=== PATIENT | male | born 1950 | race Caucasian/White ===

== ENCOUNTER 2022-10-12 01:10 | Inpatient (IN) | payer OTHER ==
[~2022-10-12] VITALS: Ht 182.9 cm; Wt 81.6 kg
--- NOTE | 2022-10-12 01:10 | NUR ---
PT GALLITO BLS. TAKEN TO BED 3
[2022-10-12 01:18] VITALS: BP 109/58; PULSE 71; RESP 30; TEMP 97.8; O2SAT 92
--- NOTE | 2022-10-12 01:20 | NUR ---
71 YO M BIBA FROM [facility] WITH C/C OF 9/10 RT HIP PAIN S/P MECH TRIP AND FALL. PT STATES HE LOST BALANCE AND FELL. NO LOC, NO BLOOD THINNERS. NO DEFORMITY ON RT HIP VISIBLE. SKIN TEAR TO LEFT ELBOW AND RT KNEE. HX:HTN, SEIZURE, STENT NKA
--- NOTE | 2022-10-12 01:27 | NUR ---
RAD AT BEDSIDE
[2022-10-12] MEDS ORDERED: KETOROLAC 15 MG/ML VIAL IM ONE (02:30)
--- NOTE | 2022-10-12 03:00 | NUR ---
ASSISTED WITH POSITIONING FOR COMFORT, PILLOWS PLACED
[2022-10-12] MEDS ORDERED: MORPHINE SULFATE 4 MG/ML SYR IVP ONE (03:50)
[2022-10-12 04:17] LABS: ANION GAP 7.4 (8-16); CARBON DIOXIDE 31.3 mmol/L (21-32)
[2022-10-12 04:18] LABS: BASOPHILS # (AUTO) 0.1 K/uL (0.00-0.22); BASOPHILS % (AUTO) 1.2 % (0.0-2.0); EOSINOPHILS % (AUTO) 0.2 % (0.0-4.0); HEMATOCRIT 40.9 % (36-52); LYMPHOCYTES # (AUTO) 1.2 K/uL (2.0-11.5); LYMPHOCYTES % (AUTO) 12.2 % (20.5-51.1); MEAN CORPUSCULAR HEMOGLOBIN 31 pg (27-31); MEAN CORPUSCULAR HGB CONC 34 g/dL (33-37); MEAN CORPUSCULAR VOLUME 89.5 fL (80-94); MONOCYTES # (AUTO) 0.5 K/uL (0.8-1.0); MONOCYTES % (AUTO) 5.1 % (1.7-9.3); NEUTROPHILS # (AUTO) 8.1 K/uL (1.8-7.7); NEUTROPHILS % (AUTO) 81.3 % (42.2-75.2); PLATELET COUNT (AUTO) 207 K/uL (140-450); RED BLOOD CELL COUNT(AUTO) 4.57 MIL/uL (4.20-6.10); RED CELL DISTRIBUTION WIDTH 14.9 % (11.6-13.7); WHITE BLOOD COUNT (AUTO) 9.9 K/uL (4.8-10.8)
[2022-10-12 04:19] LABS: POTASSIUM 2.7 mmol/L (3.5-5.1)
[2022-10-12] MEDS ORDERED: KCL 20 MEQ IN 100 mL PREMIX 200 ML IV ONE (04:25)
[2022-10-12] MEDS ORDERED: HYDROmorphone PFS 2 MG/ML SYR IVP ONE (05:55)
--- NOTE | 2022-10-12 06:00 | NUR ---
PT PULLED IV OUT. 22G REESTABLISHED LEFT A/C
[2022-10-12] MEDS ORDERED: MAGNESIUM OXIDE 400 MG TAB PO PRN (06:05)
[2022-10-12] MEDS ORDERED: KCL 20 MEQ IN 100 mL PREMIX 200 ML IV PRN (06:05)
[2022-10-12] MEDS ORDERED: MAG SULF 2000 MG/WATER PREMIX 50 ML IV PRN (06:05)
--- NOTE | 2022-10-12 07:56 | NUR ---
Pt report given to CLARA CANNON. PT TAKEN BY JAY TO THE FLOOR ESCORT BY RN AND EMT IN STABLE CONDITION. CARE TO R HIP DURING TRANSFER. Transfer of care at this time.
--- NOTE | 2022-10-12 08:55 | NUR ---
PATIENT HAS BEEN SCREENED AND CATEGORIZED LOW NUTRITION RISK. PATIENT WILL BE SEEN WITHIN 7 DAYS OF ADMISSION. 10/19/22 REVIEWED BY GREYSON LE[address]
[2022-10-12] MEDS: POTASSIUM CHLORIDE 10 MEQ TABER PO PRN (09:17)
[2022-10-12] MEDS: DOCUSATE SODIUM 100 MG GELCAP PO SCH (09:18)
[2022-10-12] MEDS: HYDROcodone/APAP 5/325 MG 1 TAB TAB PO PRN ×3 (09:18→18:48)
[2022-10-12] MEDS: NACL 0.9% 1,000 ML IV SCH ×2 (09:22→17:44)
[2022-10-12] MEDS ORDERED: POTASSIUM CHLORIDE 10 MEQ TABER PO SCH (10:16)
--- NOTE | 2022-10-12 11:00 | NUR ---
admitted the patient from the emergency room nicko Stallings in rm [id number] aox4 with episode of confusion ,with admitting diagnosis of right hip fracture . for pain management .consult with orthopedic md Coley ,
--- NOTE | 2022-10-12 11:45 | NUR ---
md Coley made rounds prescribe cardiac diet . will also femur fracture open reduction after clearing with cardiac Md tentatively in 2-3 days . will continue to monitor
[2022-10-12] MEDS: MORPHINE SULFATE 4 MG/ML SYR IVP PRN ×3 (11:55→23:03)
[2022-10-12 12:00] VITALS: BP 121/72; PULSE 58; RESP 18; TEMP 97.1; O2SAT 96
[2022-10-12 14:34] VITALS: PULSE 68; RESP 20; O2SAT 99
--- NOTE | 2022-10-12 14:57 | NUR ---
P.T. NOTES HOLD P.T. ERNESTO, AWAITING AMBER LEO.
[2022-10-12 15:04] VITALS: PULSE 68
[2022-10-12] MEDS: ACETAMINOPHEN 325 MG TAB PO PRN ×2 (15:33→21:39)
[2022-10-12 16:00] VITALS: BP 129/70; PULSE 55; RESP 18; TEMP 97.3; O2SAT 97
--- NOTE | 2022-10-12 16:27 | NUR ---
DC PLANNING 71 Y O MALE PATIENT PRESENTED TO ER WITH COMPLAINTS OF RIGHT HIP PAIN AFTER SUSTAINING A GROUND LEVEL FALL ON 10/12/2022.HX OF HTN, DM AND CHF AND [address] CONFIRMED MILDLY DISPLACED COMMUTED INTRATROCHANTERIC FEMUR FX OF THE RIGHT FEMORAL NECK.ADMITTED TO TELEMETRY AND SEEN BY CHERELLE OREILLY.PAIN MEDS:NORCO MOS4, TYLENOL.FOR SURGERY 10/14 OR 10/15 PENDING CARDIAC CLEARANCE.ERICKA KIM AT [facility] UPDATED OF PATIENT'S STATUS.CLINICALS FAXED WELL.DC PLAN-DC BACK TO [facility] AFTER SURGERY AND WHEN PATIENT CONDITION IMPROVES.CM TO FOLLOW. Addendum: 10/16/22 at 1440 by CHELSIE ACOSTA CM DC PLANNING S/P ORIF 10/15.SITTING UP IN CHAIR.ALERT AND ORIENTED X 4.POST OP PAIN BEARABLE,ON NORCO AND MORPHINE.PT EVAL DONE AND RECOMMENDING SNF FOR PT.SON INFORMED OF THE PLAN AND AGREEABLE WITH SNF. [facility] ACCEPTED PATIENT.PATIENT TO GO TO ROOM 33-A UNDER DR.BALIAL IBARRA. TRANSPORT TO BE ARRANGED WITH [facility] BY JAY ONCE DC ORDER IS IN. Addendum: 10/16/22 at 1613 by DENISE LOCKWOOD TRANSPORTATION ARRANGED WITH [facility]SPORT FOR A 1900 [address] STITCHER TIME. NURSE ADRI AWARE OF THE ABOVE INFO. Addendum: 10/16/22 at 1629 by CHELSIE ACOSTA DC PLANNING TALKED TO THE PATIENT AGAIN AND VERIFIED THE CHOICE FOR SNF.PATIENT ONLY REQUESTING [facility] TO TALK TO HIM.NO AVAILABLE BED AT [facility].PATIENT CHOSE TO GO TO [facility].REPORT TO BE GIVEN AT [phone] .PATIENT WILL GO TO ROOM 33-A UNDER DR.BALIAL IBARRA' CARE. PATIENT IS ASKING FOR PAIN MEDICINE .ADRI ROBLES.
--- NOTE | 2022-10-12 18:57 | NUR ---
will endorse to engineering technician parking shift rn for continuity of care
--- NOTE | 2022-10-12 19:00 | NUR ---
RECEIVED PT FROM MORNING SHIFT NURSE. PT IS AOX4, BEDBOUND, ABLE TO VERBALIZE NEEDS AND ABLE TO FOLLOW COMMANDS. PT IS ON 2L NC AND ON CARDIAC DIET. PT HAS IV ON LEFT AC GAUGE 22 RUNNING WITH NS AT 80ML/HR. PT HAS WOUND ON RIGHT LOWER LEG AND LEFT ELBOW. ALL SAFETY MEASURES IMPLEMENTED, BED IN LOW POSITION, BED WHEELS ON LOCK AND CALL LIGHT WITHIN REACH.
[2022-10-12 20:00] VITALS: BP 133/83; PULSE 56; RESP 18; TEMP 97.7; O2SAT 96
--- NOTE | 2022-10-12 22:00 | NUR ---
IV IS INFILTRATED. INSERTED IV ON LEFT HAND GAUGE 20. IV IS NOW PATENT AND INTACT. ALL SAFETY MEASURES IMPLEMENTED, BED IN LOW POSITION, BED WHEELS ON LOCK AND CALL LIGHT WITHIN REACH.
[2022-10-12] MEDS: ONDANSETRON 4 MG/2 ML VIAL IVP PRN (23:06)
[2022-10-13] VITALS: BP 147/72; PULSE 57; RESP 18; TEMP 97.8; O2SAT 98
[2022-10-13] MEDS ORDERED: oxyCODONE/APAP 5/325 MG 1 TAB TAB PO PRN (01:05)
--- NOTE | 2022-10-13 01:20 | NUR ---
PERCUASET WAS GIVEN TO PT DUE TO HIP AND LEG PAIN WITH PAIN SCALE OF 6/10. ALL SAFETY MEASURES IMPLEMENTED, BED IN LOW POSITION, BED WHEELS ON LOCK AND CALL LIGHT WITHIN REACH.
[2022-10-13 04:00] VITALS: BP 141/63; PULSE 72; RESP 17; TEMP 99; O2SAT 97
--- NOTE | 2022-10-13 04:00 | NUR ---
PT IS ON SLEEP. CHEST RISE AND FALL SYMMETRICALLY FALL. RESPIRATION IS EVEN AND UNLABORED. ALL SAFETY MEASURES IMPLEMENTED, BED IN LOW POSITION, BED WHEELS ON LOCK AND CALL LIGHT WITHIN REACH.
[2022-10-13] MEDS: MORPHINE SULFATE 4 MG/ML SYR IVP PRN ×6 (05:21→21:45)
[2022-10-13] MEDS: ONDANSETRON 4 MG/2 ML VIAL IVP PRN (05:21)
--- NOTE | 2022-10-13 06:52 | NUR ---
RECEIVED PT FROM MORNING SHIFT NURSE. PT IS AOX4, BEDBOUND, ABLE TO VERBALIZE NEEDS AND ABLE TO FOLLOW COMMANDS. PT IS ON 2L NC AND ON CARDIAC DIET. PT HAS IV ON LEFT AC GAUGE 22 RUNNING WITH NS AT 80ML/HR. PT HAS WOUND ON RIGHT LOWER LEG AND LEFT ELBOW. ALL SAFETY MEASURES IMPLEMENTED, BED IN LOW POSITION, BED WHEELS ON LOCK AND CALL LIGHT WITHIN REACH. Addendum: 10/13/22 at 0658 by Ginger Roe RN WRONG TIME
[2022-10-13] MEDS: NACL 0.9% 1,000 ML IV SCH ×2 (07:05→16:04)
--- NOTE | 2022-10-13 07:30 | NUR ---
RECEIVED PT FROM TOBACCO FLAVORER FOR CONTINUITY OF CARE. ALERT AND VERBALLY RESPONSIVE. RESP. EVEN AND UNLABORED. ON CONTINUOUS O2 @ 2L/NC. NOTED PT REMOVING O2. EDUCATED PT. NOT IN ANY DISTRESS NOTED. CALLED LIGHT KEPT WITHIN REACH. WILL CONTINUE TO MONITOR.
--- NOTE | 2022-10-13 07:41 | NUR ---
PT IS STABLE. ENDORSED PT TO MORNING SHIFT NURSE FOR CONTINUITY OF CARE.
[2022-10-13 08:00] VITALS: BP 112/67; PULSE 85; RESP 18; TEMP 98.4; O2SAT 99
[2022-10-13] MEDS: ACETAMINOPHEN 325 MG TAB PO PRN (08:11)
[2022-10-13] MEDS: DOCUSATE SODIUM 100 MG GELCAP PO SCH ×2 (08:12→08:19)
[2022-10-13] MEDS: ECOTRIN 81 MG TABEC PO SCH (08:13)
--- NOTE | 2022-10-13 08:13 | NUR ---
SCHEDULED MEDICATIONS AND PRN TYLENOL FOR HEADACHE WAS GIVEN. PT REFUSED DOCUSATE SODIUM. EXPLAINED RISK AND BENEFITS BUT STILL REFUSED.
[2022-10-13 08:26] LABS: BASOPHILS # (AUTO) 0.1 K/uL (0.00-0.22); BASOPHILS % (AUTO) 0.9 % (0.0-2.0); EOSINOPHILS # (AUTO) 0.2 K/uL (0-0.4); EOSINOPHILS % (AUTO) 2.6 % (0.0-4.0); HEMATOCRIT 33.8 % (36-52); HEMOGLOBIN 11.6 g/dL (12.0-18.0); LYMPHOCYTES # (AUTO) 1.4 K/uL (2.0-11.5); MEAN CORPUSCULAR HEMOGLOBIN 31 pg (27-31); MEAN CORPUSCULAR HGB CONC 34 g/dL (33-37); MEAN CORPUSCULAR VOLUME 90.6 fL (80-94); MONOCYTES # (AUTO) 0.5 K/uL (0.8-1.0); MONOCYTES % (AUTO) 7.7 % (1.7-9.3); NEUTROPHILS # (AUTO) 4.2 K/uL (1.8-7.7); NEUTROPHILS % (AUTO) 66.8 % (42.2-75.2); PLATELET COUNT (AUTO) 148 K/uL (140-450); RED BLOOD CELL COUNT(AUTO) 3.73 MIL/uL (4.20-6.10); RED CELL DISTRIBUTION WIDTH 15.1 % (11.6-13.7); WHITE BLOOD COUNT (AUTO) 6.3 K/uL (4.8-10.8)
[2022-10-13 08:48] LABS: ANION GAP 10.7 (8-16); CARBON DIOXIDE 24.6 mmol/L (21-32); CREATININE 0.7 mg/dL (0.6-1.3); POTASSIUM 3.3 mmol/L (3.5-5.1)
[2022-10-13 09:37] LABS: MAGNESIUM 1.9 mg/dL (1.8-2.4); PHOSPHORUS 2.7 mg/dL (2.5-4.9)
--- NOTE | 2022-10-13 10:57 | NUR ---
P.T. NOTES HOLD P.T. EVAL, POSSIBLE SX PER ORTHO NOTE.
--- NOTE | 2022-10-13 11:20 | NUR ---
SEEN BY DR. FUCHS.
--- NOTE | 2022-10-13 15:52 | NUR ---
PRN MORPHINE IVP WAS GIVEN BY LOWELL CANNON. TOLERATED WELL.
[2022-10-13] MEDS: POTASSIUM CHLORIDE 10 MEQ TABER PO PRN (17:24)
[2022-10-13] MEDS: oxyCODONE/APAP 5/325 MG 1 TAB TAB PO PRN ×2 (17:24→23:21)
--- NOTE | 2022-10-13 17:24 | NUR ---
K DUR GIVEN FOR POTASSIUM 3.3. TOLERATED WELL.
--- NOTE | 2022-10-13 19:35 | NUR ---
BEDSIDE REPORT GIVEN TO FIRE TOWER KEEPER FOR CONTINUITY OF CARE. REMAINS STABLE.
--- NOTE | 2022-10-13 19:36 | NUR ---
RECD. RESTING IN BED, AWAKE, A/OX4. RESPIRATION EVEN AND UNLABORED. ON 2 LITERS OXYGEN VIA N/C. WATCHING TV. IV OF NS AT 80 ML/HR INFUSING, LEFT HAND G22. USES THE URINAL. SAFETY MEASURES ENFORCED. BED IN THE LOWEST POSITION, CALL LIGHT IN REACH. PAIN IN THE RIGHT HIP 06/08, WAS MEDICATED BY AM NURSE AT 1857. WILL CONTINUE TO MONITOR AND ADMINISTER PAIN MED PER MD ORDER.
[2022-10-13 20:00] VITALS: PULSE 68; RESP 20; O2SAT 99
--- NOTE | 2022-10-13 20:00 | NUR ---
ASKING FOR PAIN MEDICATION AGAIN, EXPLAINED IT IS NOT YET TIME. ALWAYS TAKING OFF OXYGEN CANNULA. REMINDED TO ALWAYS PUT IT ON BECAUSE HIS OXYGEN SATURATION WILL GO DOWN. VERBALIZED UNDERSTANDING.
--- NOTE | 2022-10-13 21:54 | NUR ---
RESTING IN BED, SCHEDULED MEDICATION ADMINISTERED.
--- NOTE | 2022-10-13 22:55 | NUR ---
Patient's Plan of Care was discussed and reviewed with FANTA: NAT
[2022-10-13 23:40] VITALS: BP 124/70; PULSE 76; RESP 16; TEMP 98.1; O2SAT 95
[2022-10-14] MEDS: ACETAMINOPHEN 325 MG TAB PO PRN (00:11)
--- NOTE | 2022-10-14 00:18 | NUR ---
UNABLE TO SLEEP, MESSAGED DR. SYLVESTER.
--- NOTE | 2022-10-14 00:30 | NUR ---
ELEVATED LEFT LOWER EXTREMITY PER REQUESTED. PUT ONE PILLOW UNDER RIGHT LOWER EXTREMITY. VERBALIZED FEELING BETTER.
[2022-10-14] MEDS ORDERED: ZOLPIDEM 5 MG TAB PO PRN (00:35)
--- NOTE | 2022-10-14 00:44 | NUR ---
UNABLE TO SLEEP, MEDICATED WITH AMBIEN PER MD ORDER.
[2022-10-14 00:48] VITALS: BP 139/67; PULSE 72; RESP 18; TEMP 98.1; O2SAT 95
[2022-10-14] MEDS: MORPHINE SULFATE 4 MG/ML SYR IVP PRN ×7 (00:53→22:45)
--- NOTE | 2022-10-14 01:44 | NUR ---
STILL AWAKE IN BED. WATCHING TV.
--- NOTE | 2022-10-14 03:00 | NUR ---
REPOSITIONED IN BED WITH PILLOWS FOR COMFORT.
--- NOTE | 2022-10-14 04:00 | NUR ---
WANTS TO HAVE BM, OFFERED BED BR[place]ORD BUT GET ANGRY.
[2022-10-14] MEDS: NACL 0.9% 1,000 ML IV SCH ×2 (04:04→22:03)
--- NOTE | 2022-10-14 04:59 | NUR ---
COMPLAINING OF RIGHT LEG SPASM. INFORMED DR. SYLVESTER PATIENT COMPLAINING MORPHINE DOES NOT WORK FOR HIM AND REQUESTING FOR MED FOR LEG SPASM.
--- NOTE | 2022-10-14 05:20 | NUR ---
REPOSITIONED IN BED WITH HELP OF NURSE NICHOLE. SAFETY MAINTAINED.
[2022-10-14 06:54] LABS: BASOPHILS # (AUTO) 0.1 K/uL (0.00-0.22); BASOPHILS % (AUTO) 0.8 % (0.0-2.0); EOSINOPHILS # (AUTO) 0.2 K/uL (0-0.4); EOSINOPHILS % (AUTO) 2.3 % (0.0-4.0); HEMATOCRIT 34.3 % (36-52); HEMOGLOBIN 11.7 g/dL (12.0-18.0); LYMPHOCYTES # (AUTO) 1.5 K/uL (2.0-11.5); LYMPHOCYTES % (AUTO) 18.4 % (20.5-51.1); MEAN CORPUSCULAR HEMOGLOBIN 31 pg (27-31); MEAN CORPUSCULAR HGB CONC 34 g/dL (33-37); MEAN CORPUSCULAR VOLUME 89.9 fL (80-94); MONOCYTES # (AUTO) 0.6 K/uL (0.8-1.0); MONOCYTES % (AUTO) 6.8 % (1.7-9.3); NEUTROPHILS # (AUTO) 5.9 K/uL (1.8-7.7); NEUTROPHILS % (AUTO) 71.7 % (42.2-75.2); PLATELET COUNT (AUTO) 165 K/uL (140-450); RED BLOOD CELL COUNT(AUTO) 3.82 MIL/uL (4.20-6.10); RED CELL DISTRIBUTION WIDTH 14.9 % (11.6-13.7); WHITE BLOOD COUNT (AUTO) 8.2 K/uL (4.8-10.8)
--- NOTE | 2022-10-14 06:55 | NUR ---
HIGINIO OREILLY DID NOT REPLY, WILL ENDORSED TO AM NURSE TO FOLLOW UP.
[2022-10-14 06:59] LABS: ANION GAP 13.5 (8-16); CARBON DIOXIDE 23.5 mmol/L (21-32); CREATININE 0.9 mg/dL (0.6-1.3); MAGNESIUM 1.8 mg/dL (1.8-2.4); PHOSPHORUS 2.4 mg/dL (2.5-4.9)
--- NOTE | 2022-10-14 07:20 | NUR ---
CONDITION REMAIN STABLE. SAFETY MAINTAINED. ALL NEEDS ATTENDED. ENDORSED TO KASSANDRA SANTA FOR CONTINUITY OF CARE.
[2022-10-14 08:00] VITALS: BP 134/77; PULSE 67; RESP 18; RESP 20; TEMP 98.2; O2SAT 92; O2SAT 98
[2022-10-14] MEDS: DOCUSATE SODIUM 100 MG GELCAP PO SCH (08:35)
[2022-10-14] MEDS: ECOTRIN 81 MG TABEC PO SCH (08:37)
[2022-10-14] MEDS: oxyCODONE/APAP 5/325 MG 1 TAB TAB PO PRN (08:37)
[2022-10-14 08:44] LABS: PROTHROMBIN TIME 10.9 secs (10.8-13.4)
[2022-10-14] MEDS: KETOROLAC 15 MG/ML VIAL IVP PRN ×2 (15:31→21:14)
[2022-10-14 16:00] VITALS: BP 164/77; PULSE 80; RESP 20; TEMP 99.1; O2SAT 97
[2022-10-14 20:00] VITALS: PULSE 68; RESP 20; O2SAT 99
[2022-10-14] MEDS ORDERED: diphenhydrAMINE 50 MG/ML VIAL IVP PRN (23:25)
[2022-10-15] MEDS: MORPHINE SULFATE 4 MG/ML SYR IVP PRN ×5 (02:46→21:29)
[2022-10-15 04:00] VITALS: BP_SYST 143; BP_SYST 156; BP_DIAS 69; BP_DIAS 78; PULSE 68; PULSE 88; RESP 20; RESP 24; TEMP 98.4; TEMP 98.6; O2SAT 97
[2022-10-15 04:02] LABS: BASOPHILS # (AUTO) 0.1 K/uL (0.00-0.22); BASOPHILS % (AUTO) 0.9 % (0.0-2.0); EOSINOPHILS # (AUTO) 0.2 K/uL (0-0.4); EOSINOPHILS % (AUTO) 3.3 % (0.0-4.0); HEMATOCRIT 28.4 % (36-52); HEMOGLOBIN 9.8 g/dL (12.0-18.0); LYMPHOCYTES # (AUTO) 0.9 K/uL (2.0-11.5); LYMPHOCYTES % (AUTO) 16.7 % (20.5-51.1); MEAN CORPUSCULAR HEMOGLOBIN 31 pg (27-31); MEAN CORPUSCULAR HGB CONC 34 g/dL (33-37); MEAN CORPUSCULAR VOLUME 89.9 fL (80-94); MONOCYTES # (AUTO) 0.5 K/uL (0.8-1.0); MONOCYTES % (AUTO) 8.8 % (1.7-9.3); NEUTROPHILS # (AUTO) 3.8 K/uL (1.8-7.7); NEUTROPHILS % (AUTO) 70.3 % (42.2-75.2); PLATELET COUNT (AUTO) 138 K/uL (140-450); RED BLOOD CELL COUNT(AUTO) 3.16 MIL/uL (4.20-6.10); RED CELL DISTRIBUTION WIDTH 14.7 % (11.6-13.7); WHITE BLOOD COUNT (AUTO) 5.4 K/uL (4.8-10.8)
[2022-10-15 04:15] LABS: ANION GAP 7.6 (8-16); CARBON DIOXIDE 29.5 mmol/L (21-32); CREATININE 0.7 mg/dL (0.6-1.3); POTASSIUM 3.1 mmol/L (3.5-5.1)
[2022-10-15 04:20] LABS: MAGNESIUM 1.8 mg/dL (1.8-2.4); PHOSPHORUS 2.7 mg/dL (2.5-4.9)
[2022-10-15] MEDS ORDERED: MEPERIDINE 25 MG/ML SYR ONE (07:00)
[2022-10-15] MEDS ORDERED: ceFAZolin 1,000 MG VIAL ONE (07:00)
[2022-10-15] MEDS ORDERED: fentaNYL citrate 0.05 MG/ML - 50mL vial IV ONE (07:00)
[2022-10-15] MEDS ORDERED: MEPERIDINE 50 MG/ML SYR ONE ×2 (07:00→08:02)
[2022-10-15] MEDS ORDERED: PROPOFOL 200 MG/20 ML VIAL IV ONE ×4 (07:00→07:24)
[2022-10-15] MEDS ORDERED: SEVOFLURANE 250 ML BTL INH ONE ×2 (07:00)
[2022-10-15] MEDS ORDERED: BUPIVACAINE-MPF/EPI 0.5% 30 ML VIAL INJ ONE (07:23)
[2022-10-15] MEDS ORDERED: fentaNYL citrate 0.05 MG/ML VIAL ONE (07:24)
[2022-10-15] MEDS ORDERED: ceFAZolin 2,000 MG VIAL ONE (07:28)
--- NOTE | 2022-10-15 07:30 | NUR ---
Pt. kept NPO postmidnoc. Medicated for pain with Morphine 4 mg [id number] IVP and Toradol. Pt. picked up by OR and transported for ORIF of Hip Fx. Care endorsed.
[2022-10-15] MEDS ORDERED: ePHEDrine 50 MG/ML VIAL ONE (07:45)
--- NOTE | 2022-10-15 07:56 | NUR ---
RECEIVE PATIENT AFTER OR NURSE PEGGER PATIENT FOR ORIF PROCEDURE AT [facility]. AT THIS TIME, PATIENT HAVE ANCEF 2GM, EPHEDRINE 50MG, FENTANYL 0.05MG, EPINEPHRINE 0.55, & PROPOFOL 200MG ORDERED IN OR FOR PROCEDURE. WILL CONTINUE TO MONITOR Addendum: 10/15/22 at 0919 by Misty Galvez RN RECEIVE PHARMACIST CALL FOR PATIENT'S NEW ORDER ANCEF BECAUSE PATIENT ALLERGY TO PENICILLINS. WILL FOLLOW UP AFTER PATIENT BACK FROM PROCEDURE Addendum: 10/15/22 at 1037 by Misty Galvez RN RECEIVE PATIENT BACK FROM ORIF PROCEDURE AFTER ANCEF & 0.25 DILAUDID (@9040) GIVE IN OR. NO ALLERGY REACTION NOTE AT THIS TIME. PATIENT'S VITAL (T-P-R: 98.3-98-20, BP: 141/83, 02 SAT 96% IN RA) WILL CONTINUE TO MONITOR Addendum: 10/15/22 at 1524 by Misty Galvez RN PER PATIENT & HIS SPOUSE'S REQUEST AND PCP ORDER, PATIENT HAS 16FR CANALES PLACED IN AND ABOUT 1000ML URINE OUTPUT IN COLLECTING BAG SHORTLY AFTER CANALES IN PLACE. WILL CONTINUE TO MONITOR
[2022-10-15 08:00] VITALS: PULSE 98; RESP 20; O2SAT 96
--- NOTE | 2022-10-15 08:45 | NUR ---
PT. WITH LOW IRMA SCALE AT MODERATE TO HIGH RISK, CONTINUE TO FOLLOW PRESSURE INJURY PREVENTION INTERVENTIONS. -POSITIONING: TURN AND REPOSITION PATIENT Q 2H OR SOONER USE PILLOWS TO KEEP BONY PROMINENCES FROM DIRECT CONTACT WITH SURFACES USE REPOSITIONING WEDGES TO PROVIDE 30-DEGREE ANGLE FOR SIDE LYING POSITIONS OFFLOADING OR FOAM DRESSING TO ALL TUBING TO PREVENT MEDICAL DEVICES RELATED PRESSURE INJURY -RE-EVALUATING AND MANAGING INCONTINENCE MONITOR SKIN CONDITION DURING POSITION CHANGE DO NOT MASSAGE REDNESS, BONY PROMINENCES FREQUENT FRANCISCO-CARE AND PROVIDE BARRIER CREAMS PRN IF SOILING MOISTURE CONTROL BY OFFER BED BRADFORD/URINAL /ABSORBENT PAD TO WICK AND HOLD MOISTURE KEEP SKIN DRY AND PROTECT FROM FRICTION -MANAGE FRICTION/SHEAR/MOBILITY KEEP HOB AT THE LOWEST LEVEL OF ELEVATION NO MORE THAN 30 DEGREE UNLESS OTHERWISE CONTRAINDICATED USE LIFT SHEET OR TRANSFER DEVICE TO MOVE PATIENT AND PREVENT LATERAL SHEER. PROTECT HEELS, ELBOWS BONY PROMINENCES WITH SKIN BERRIES OR FOAM DRESSING IF EXPOSED TO FRICTION OFFLOAD BILATERAL HEELS BY PLACING PILLOWS UNDER CALVES AT ALL TIMES, UNLESS OTHERWISE CONTRAINDICATED -PRESSURE REDISTRIBUTION SURFACE THERAPY ADOLPH ISOFLEX MATTRESS -NUTRITION: PLEASE FOLLOW RD RECOMMENDATIONS AND OFFER NUTRITION SUPPLEMENTS IF ORDERED. PLEASE CONTACT WOUND CARE NURSE FOR ANY QUESTION AND CHANGE OF WOUND CONDITION.
[2022-10-15] MEDS: HYDROmorphone 1 MG/ML AMP IVP PRN ×6 (08:50→09:40)
--- NOTE | 2022-10-15 08:50 | NUR ---
WOUND CONSULT PENDING. PT AT OR FOR PROCEDURES.
[2022-10-15 09:00] VITALS: BP 141/83; PULSE 98; RESP 20; TEMP 98.3; O2SAT 96
[2022-10-15] MEDS: LACTATED RINGERS 1,000 ML IV SCH ×2 (09:00→17:27)
[2022-10-15] MEDS ORDERED: MEPERIDINE 25 MG/ML SYR IVP PRN (09:00)
[2022-10-15] MEDS ORDERED: diphenhydrAMINE 50 MG/ML VIAL IVP PRN (09:00)
[2022-10-15] MEDS ORDERED: ONDANSETRON 4 MG/2 ML VIAL IVP PRN (09:00)
[2022-10-15] MEDS ORDERED: HYDROmorphone PFS 2 MG/ML SYR ONE (09:04)
[2022-10-15] MEDS: DOCUSATE SODIUM 100 MG GELCAP PO SCH (11:32)
[2022-10-15] MEDS: NACL 0.9% 1,000 ML IV SCH ×2 (11:33→21:35)
[2022-10-15] MEDS: ECOTRIN 81 MG TABEC PO SCH (11:33)
[2022-10-15] MEDS: POTASSIUM CHLORIDE 10 MEQ TABER PO PRN (11:39)
[2022-10-15 16:00] VITALS: BP 143/78; PULSE 74; RESP 19; TEMP 98.3; O2SAT 93
--- NOTE | 2022-10-15 19:35 | NUR ---
RECEIVED PATIENT AWAKE ALERT VERBALLY RESPONSIVE. NO ACUTE DISTRESS ON ROOM AIR. IVF INFUSING WELL TO RIGHT FOREARM. CANALES CATHETER DRAINING TO GRAVITY TO A CLEAR YELLOW URINE. NO COMPLAINTS OF PAIN AT THIS TIME. FRIEND AT BEDSIDE. CALL LIGHT WITHIN REACH. BED WHEELS LOCK IN LOW POSITION.
[2022-10-15 20:00] VITALS: PULSE 95; RESP 18; O2SAT 92
--- NOTE | 2022-10-15 21:31 | NUR ---
SCHEDULED MEDICATIONS DUE GIVEN.
[2022-10-16] MEDS: MORPHINE SULFATE 4 MG/ML SYR IVP PRN ×6 (00:42→18:48)
[2022-10-16] MEDS: LACTATED RINGERS 1,000 ML IV SCH (01:40)
[2022-10-16] MEDS: ACETAMINOPHEN 325 MG TAB PO PRN (03:17)
[2022-10-16 04:00] VITALS: BP 142/77; PULSE 84; RESP 18; TEMP 98.1; O2SAT 93
[2022-10-16 05:14] LABS: BASOPHILS % (AUTO) 0.7 % (0.0-2.0); EOSINOPHILS # (AUTO) 0.2 K/uL (0-0.4); EOSINOPHILS % (AUTO) 2.5 % (0.0-4.0); HEMATOCRIT 26.7 % (36-52); HEMOGLOBIN 9.3 g/dL (12.0-18.0); LYMPHOCYTES # (AUTO) 0.8 K/uL (2.0-11.5); MEAN CORPUSCULAR HEMOGLOBIN 31 pg (27-31); MEAN CORPUSCULAR HGB CONC 35 g/dL (33-37); MEAN CORPUSCULAR VOLUME 89.8 fL (80-94); MONOCYTES # (AUTO) 0.5 K/uL (0.8-1.0); MONOCYTES % (AUTO) 8.9 % (1.7-9.3); NEUTROPHILS # (AUTO) 4.5 K/uL (1.8-7.7); NEUTROPHILS % (AUTO) 73.9 % (42.2-75.2); PLATELET COUNT (AUTO) 134 K/uL (140-450); RED BLOOD CELL COUNT(AUTO) 2.98 MIL/uL (4.20-6.10); RED CELL DISTRIBUTION WIDTH 14.8 % (11.6-13.7)
[2022-10-16 05:44] LABS: ANION GAP 9.2 (8-16); CARBON DIOXIDE 27.2 mmol/L (21-32); CHLORIDE 99 mmol/L (98-107); CREATININE 0.7 mg/dL (0.6-1.3); GLUCOSE 113 mg/dL (74-106); MAGNESIUM 1.9 mg/dL (1.8-2.4); PHOSPHORUS 2.7 mg/dL (2.5-4.9); POTASSIUM 3.4 mmol/L (3.5-5.1); SODIUM SERUM 132 mmol/L (136-145); UREA NITROGEN, BLOOD 8 mg/dL (7-18)
[2022-10-16 08:00] VITALS: BP 107/62; PULSE 73; RESP 20; TEMP 98.3; O2SAT 94
[2022-10-16] MEDS: ECOTRIN 81 MG TABEC PO SCH (08:37)
[2022-10-16] MEDS: POTASSIUM CHLORIDE 10 MEQ TABER PO PRN (08:40)
[2022-10-16] MEDS: DOCUSATE SODIUM 100 MG GELCAP PO SCH (08:40)
[2022-10-16] MEDS: NACL 0.9% 1,000 ML IV SCH (10:49)
--- NOTE | 2022-10-16 11:25 | NUR ---
PATIENT REQUEST HELP HIM GO BATHROOM; THEREFORE, HE CAN HAVE BM BECAUSE PATIENT CANNOT DO BM ON BEDPAN. NURSE ASKED ONE OF MALE COWORKER HELP TRANSFER PATIENT TO BEDSIDE COMMODE. AFTER FINISH TRANSFER PATIENT TO BEDSIDE COMMODE, PATIENT ASK FOR ANOTHER DOSE MORPHINE (2 HOURS AFTER ANOTHER DOSE GIVE IN 831). PT HERE AND HELP PATIENT AGREE TO HAVE ANOTHER DOSE MORPHINE AFTER HAVE BM & GET BACK TO BED. PATIENT AGREE. SHORTLY AFTER PT LEFT, PATIENT CANNOT MAKE ANY BM, THEN ASK NURSE GIVE HIM STOOL SOFT, NURSE TELL PATIENT THAT HE HAS STOOL SOFTER EVERY DAY. THEN PATIENT ASK ENEMA. NURSE OFFER PRUNE JUICE AND PATIENT AGREE BUT STILL NO BM. WILL CONTINUE TO MONITOR
--- NOTE | 2022-10-16 13:38 | NUR ---
Group Account Director CURRICULUM DESIGNER made a contact and interviewed pt. for this discharge planning assessment. Pleaser refer to the assessment.
[2022-10-16] MEDS ORDERED: ASPI-1822 PO (14:57)
[2022-10-16 15:38] VITALS: BP 130/74; PULSE 83; RESP 20; TEMP 98.8
[2022-10-16] MEDS ORDERED: OXYC-304 PO (15:56)
[2022-10-16] MEDS ORDERED: DOCU-299 PO (15:56)
[2022-10-16 16:00] VITALS: BP 130/74; PULSE 83; RESP 20; TEMP 98.8; O2SAT 96
--- NOTE | 2022-10-16 18:29 | NUR ---
PHYSICAL THERAPY CO-SIGN The Physical Therapy Progress Notes documented by Joy Operator have been reviewed. Reviewed/Co-Signed by: Flor Maldonado PT Documentation Done by:ADALID KOHLI BAG BUILDER Addendum: 10/16/22 at 1830 by Flor Maldonado PT Amended: Links added.
--- NOTE | 2022-10-16 19:04 | NUR ---
DISCHARGE PATIENT PER PCP ORDER TO [facility]IA [facility], DISCHARGE CONSENT SIGNED, REPORT GIVE TO [facility] NURSE PRIOR TRANSPORTATION IS HERE, IV ACCESS & WRIST BAND REMOVE BEFORE DISCHARGE PATIENT. CANALES STILL IN PLACE, AND MORPHINE 4MG GIVE BEFORE SENDING PATIENT OUT.
== END 2022-10-16 19:05 | DRG 482 ==
LOC: MED 01:10 → MMU 06:09 → MTU 06:36
PROVIDERS: ADMIT Student in an Organized Health Care Education/Training Program; ATTEND Student in an Organized Health Care Education/Training Program
PROC: 0QS604Z Reposition Right Upper Femur with Internal Fixation Device, Open Approach (ICD-10-PCS; principal; 2022-10-15 07:30)
DX: S72.141A Displaced intertrochanteric fracture of right femur, initial encounter for closed fracture (principal); I25.10 Atherosclerotic heart disease of native coronary artery without angina pectoris; E11.9 Type 2 diabetes mellitus without complications; E87.6 Hypokalemia; I11.0 Hypertensive heart disease with heart failure; D64.89 Other specified anemias; I50.9 Heart failure, unspecified; F17.200 Nicotine dependence, unspecified, uncomplicated; M81.0 Age-related osteoporosis without current pathological fracture; J44.9 Chronic obstructive pulmonary disease, unspecified; W01.0XXA Fall on same level from slipping, tripping and stumbling without subsequent striking against object, initial encounter; Y93.01 Activity, walking, marching and hiking; Y92.128 Other place in nursing home as the place of occurrence of the external cause; Y99.8 Other external cause status; Z88.0 Allergy status to penicillin; Z98.61 Coronary angioplasty status; Z79.4 Long term (current) use of insulin; Z86.73 Personal history of transient ischemic attack (TIA), and cerebral infarction without residual deficits
CPT/HCPCS: 36415; 71045; 72170; 72192; 80048; 83735; 84100; 85025; 85610; 85730; 87081; 93005; 96365; 96372; 96375; 97110; 97112; 97530; 99285; C1713; J0690; J1170; J1200; J1644; J1885; J2175; J2270; J2405; J2704; J3010; J3480; J3490; J7060; J7120; Q0092